=== PATIENT | male | born 1965 | race Two or more races ===

== ENCOUNTER → 2025-01-23 | Outpatient (CLI) | payer MEDICAID, SELFPAY ==
--- NOTE | 2025-01-23 12:00 | XR_ITS ---
Examination: CT abdomen, without intravenous contrast. CT pelvis, without intravenous contrast. CT abdomen, with intravenous contrast. CT pelvis, with intravenous contrast. 2-D sagittal coronal reconstructions. Date and time of exam:January 23, 2025 1144 hours Comparison September 27, 2012 INDICATIONS: Right upper abdominal pain beginning 3 months ago, diagnosis gastric carcinoma 3 years ago CTDI: vol (mGy) 18.9 DLP: (mGycm) 1160 Technique: Multiple 3.0 axial images of the abdomen and pelvis without intravenous contrast, 3.0 mm slice thickness. Multiple 3.0 postcontrast images abdomen and pelvis also obtained, post intravenous injection 60 cc [id number] 2-D sagittal and coronal reconstructions. Low dose protocols were performed. One or more of the following dose reduction techniques were used; automated exposure control, adjustment of the mA and/or KV according to patient size, use of iterative reconstruction technique. Findings: No focal liver or splenic lesions No gallstones Diffuse mucosal thickening in the stomach Aorta normal size 6 mm fat-containing left adrenal nodule 1 mm posterior right renal calculus No abdominal lymphadenopathy No ascites No bowel obstruction No diverticulitis No pelvic lymphadenopathy Transverse prostate dimension 3.8 cm Intact urinary bladder Moderate osteopenia IMPRESSION: Mild diffuse mucosal thickening in the stomach 1 mm posterior right renal calculus No focal liver lesions No abdominal or pelvic lymphadenopathy
== END | disposition home or self-care (01) ==
LOC: CCTX 11:24
PROVIDERS: PCP Family Medicine; Referring Provider Internal Medicine Gastroenterology; Visit Provider Internal Medicine Gastroenterology
DX: N20.0 Calculus of kidney (principal); K31.89 Other diseases of stomach and duodenum
CPT/HCPCS: 74178; A4649; Q9967